=== PATIENT | male | born 1940 | race Caucasian/White ===

== ENCOUNTER → 2021-10-26 | Day surgery (SDC) | payer MEDICARE ==
[~2021-10-26] VITALS: Ht 177.8 cm; Wt 62.1 kg
[~2021-10-26] MED LIST: CANABIS OIL PO; COLLAGEN PO; EC MATRIXX TAB1 EACH PO; IODINE STRONG PO; MAG-OXIDE 400M400 MG PO; MILK THISTLE175 M2 PO; SPIRULINA500 MG PO; ZINC50 MG PO; [UNRECOGNIZED DRUG - REMARK] PO
== END | disposition home or self-care (01) ==
LOC: FAS 09:05
DX: R93.5 Abnormal findings on diagnostic imaging of other abdominal regions, including retroperitoneum (principal); K57.30 Diverticulosis of large intestine without perforation or abscess without bleeding; K76.9 Liver disease, unspecified; N40.0 Benign prostatic hyperplasia without lower urinary tract symptoms; I49.9 Cardiac arrhythmia, unspecified; E78.5 Hyperlipidemia, unspecified; Z79.899 Other long term (current) drug therapy
CPT/HCPCS: J7120